=== PATIENT | male | born 1990 | race Caucasian/White ===

== ENCOUNTER 2020-02-10 18:45 | Emergency (ER) | payer SELFPAY ==
[~2020-02-10] VITALS: Ht 172.7 cm; Wt 63.5 kg
--- NOTE | 2020-02-10 18:44 | NUR ---
ED Nurse Note: Pt brought in by ambulance R58 from [facility]. Pt is obtunded, only responsive to deep pain stimulus, nonverbal. Pt vitals at 1844: HR 72, R 21, 96% RA. Per ambulance, pt given Narcan in ambulance. Pt is set up on monitor. aware.
--- NOTE | 2020-02-10 18:47 | NUR ---
ED Nurse Note: Roommate Andres [phone]
--- NOTE | 2020-02-10 18:51 | Emergency Room Report ---
History of Present Illness General Chief Complaint: Overdose Source: EMS (Maximo Guzman DO) Present Illness HPI Patient presents by paramedics for reports of possible overdose Patient himself is unresponsive initially paramedics report that the patient had some response to Narcan There was no reports of vomiting or diarrhea Patient's roommate has now called the emergency room and reports that the patient took a fake xanax (Maximo Guzman DO) Allergies: Coded Allergies: UNABLE TO ASSESS (Unverified , 02/10/20) pt non verbal, not responding. COVID-19 Screening Contact w/high risk pt: No Recent Travel to affected area: No Experienced COVID-19 symptoms?: No (Maximo Guzman DO) Patient History Limited by: medical condition Past Medical History: see triage record Reviewed Nursing Documentation: PMH: Agreed; PSxH: Agreed (Maximo Guzman DO) Nursing Documentation-PMH Past Medical History Deferred: Pt Cognitively Impaired (Maximo Guzman DO) Review of Systems All Other Systems: limited - Other than the ones mentioned in the history of present illness all others are reviewed however they do stay limited due to the patient's mental status (Maximo Guzman DO) Physical Exam Vital Signs Date Time Temp Pulse Resp B/P (MAP) Pulse Ox O2 Delivery O2 Flow Rate FiO2 02/10/20 18:33 98.1 86 14 117/78 (91) 99 Room Air Sp02 EP Interpretation: reviewed, normal General Appearance: Stupor Head: normocephalic, atraumatic Eyes: bilateral eye PERRL - Pinpoint ENT: normal pharynx Neck: supple Respiratory: lungs clear, no respiratory distress, no retraction Cardiovascular #1: regular rate, rhythm Gastrointestinal: non tender, soft Musculoskeletal: other - On current exam patient is unresponsive to physical stimuli Neurologic: other - Respirations are intact patient otherwise not verbal minimal response to physical stimuli Skin: no rash Lymphatic: no adenopathy (Maximo Guzman DO) Medical Decision Making Diagnostic Impression: Primary Impression: Drug overdose Qualified Codes: T50.901A - Poisoning by unspecified drugs, medicaments and biological substances, accidental (unintentional), initial encounter ER Course Multiple differentials and consideration including but not limited to drug overdose, neurological, neurosurgical pulmonary process entertained Patient initially was observed however has slow response to Narcan therefore CT head was obtained which was negative blood work was for appropriate patient's roommate did call and reports that the patient took unknown amount of 'fake xanax' He also left his phone number in the call form in order to be contacted for pickup of the patient once he becomes more oriented Patient at this time remains appropriate for airway is allowed to rest and sober (Maximo Guzman DO) ER Course Patient signed out to me. Patient presents an overdose. He is pretty stuporous secondary to a drug overdose. Drug screen show multiple substances. Patient is otherwise medically stable. He will be watched until clinical sobriety. No evidence of intentional harm. Patient denies suicidal thoughts or homicidal thoughts. No criteria for 5150. This patient is a chronic risk of self injury due to poor impulse control, limited coping skills, and judgment intermittently impaired by intoxication. I believe that the available clinical evidence to suggest that these characteristics derived primarily from personality disorder and are likely very stable over time. Hospitalization would likely attenuate risk of self-harm only during jail period, without lasting risk reduction. Serious self-harm , while possible, would likely be inadvertent, and because of impulsivity, and foreseeable. For these reasons, I do not believe hospitalization would provide meaningful reduction in risk of self-harm. (Norberto Anderson MD) Rhythm Strip Diag. Results EP Interpretation: yes Rate: 65 Rhythm: NSR, no PVC's, no ectopy (Maximo Guzman DO) Chest X-Ray Diagnostic Results Chest X-Ray Diagnostic Results : Chest X-Ray Ordered: Yes # of Views/Limited/Complete: 1 View Indication: Chest Pain EP Interpretation: Yes Interpretation: no consolidation, no effusion, no pneumothorax Impression: No acute disease Electronically Signed by: Maximo Guzman DO (Maximo Guzman DO) CT/MRI/US Diagnostic Results CT/MRI/US Diagnostic Results : Impression CT head: No acute disease (Maximo Guzman DO) Last Vital Signs Date Time Temp Pulse Resp B/P (MAP) Pulse Ox O2 Delivery O2 Flow Rate FiO2 02/10/20 18:33 98.1 86 14 117/78 (91) 99 Room Air Status: improved (Maximo Guzman DO) Status: improved (Norberto Anderson MD) Disposition: HOME, SELF-CARE Condition: Stable Scripts Unable to Obtain Active Prescriptions or Reported Meds Additional Instructions: Abstain from drugs and alcohol. Follow-up with rehab within a week. Return if symptoms worsen. Maximo Guzman DO Feb 10, 2020 18:51 Norberto Anderson MD Feb 10, 2020 22:58
[2020-02-10 18:56] VITALS: BP 115/72
[2020-02-10] MEDS ORDERED: Naloxone 1mg/ml 2ml IM ONE (19:00)
--- NOTE | 2020-02-10 19:12 | Diagnostic Imaging Report ---
EXAM: XR Chest, 1 View CLINICAL HISTORY: CP TECHNIQUE: Frontal view of the chest. COMPARISON: No relevant prior studies available. FINDINGS: Lungs: Unremarkable. No consolidation. Pleural space: Unremarkable. No pneumothorax. Heart: Unremarkable. No cardiomegaly. Mediastinum: Unremarkable. Bones/joints: Unremarkable. IMPRESSION: 1. No acute cardiopulmonary disease. 2. If there is continued concern recommend frontal and lateral chest radiographs.
--- NOTE | 2020-02-10 19:23 | NUR ---
ED Nurse Note: Patient sleeping, unresponsive to deeop pain stimuli and snoring faintly. ERMD aware and requests IVP narcan.
[2020-02-10] MEDS ORDERED: Naloxone 1mg/ml 2ml ONE (19:24)
[2020-02-10] MEDS ORDERED: Naloxone 1mg/ml 2ml IVP ONE (19:30)
[2020-02-10 19:32] VITALS: BP 100/61
--- NOTE | 2020-02-10 19:33 | NUR ---
ED Nurse Note: Patient tolerated IVP narcan, was able to localize to pain with sternal rub. Will inform ERMD and continue to monitor.
[2020-02-10 20:40] LABS: BASOPHILS % (AUTO) 0.8 % (0.0-2.0); EOSINOPHILS % (AUTO) 0.6 % (0.0-3.0); HEMATOCRIT 43.6 % (42.0-52.0); HEMOGLOBIN 14.7 G/DL (14.2-18.0); LYMPHOCYTES % (AUTO) 17.4 % (20.0-45.0); MEAN CORPUSCULAR VOLUME 92 FL (80-99); NEUTROPHILS % (AUTO) 77.2 % (45.0-75.0); PLATELET COUNT 411 K/UL (150-450); RED BLOOD COUNT 4.73 M/UL (4.70-6.10); RED CELL DISTRIBUTION WIDTH 12.2 % (11.6-14.8); WHITE BLOOD COUNT 12.7 K/UL (4.8-10.8)
--- NOTE | 2020-02-10 20:44 | NUR ---
ED Nurse Note: Patient going down for CT.
[2020-02-10 20:52] LABS: ANION GAP 8 mmol/L (5-15); BLOOD UREA NITROGEN 14 mg/dL (7-18); CALCIUM 9.5 MG/DL (8.5-10.1); CARBON DIOXIDE 27 MMOL/L (21-32); CHLORIDE 105 MMOL/L (98-107); CREATININE 0.9 MG/DL (0.55-1.30); POTASSIUM 4.2 MMOL/L (3.5-5.1); SODIUM 140 MMOL/L (136-145)
[2020-02-10 20:57] LABS: ALANINE AMINOTRANSFERASE 25 U/L (12-78); ALBUMIN 4.4 G/DL (3.4-5.0); ALBUMIN/GLOBULIN RATIO 1.3 (1.0-2.7); ALKALINE PHOSPHATASE 66 U/L (46-116); ASPARTATE AMINO TRANSFERASE 11 U/L (15-37); BILIRUBIN,TOTAL 0.2 MG/DL (0.2-1.0)
--- NOTE | 2020-02-10 21:05 | Diagnostic Imaging Report ---
EXAM: CT Head Without Intravenous Contrast CLINICAL HISTORY: AMS TECHNIQUE: Axial computed tomography images of the head/brain without intravenous contrast. CTDI is 53 mGy and DLP is 992 mGy-cm. One or more of the following dose reduction techniques were used: automated exposure control, adjustment of the mA and/or kV according to patient size, use of iterative reconstruction technique. COMPARISON: No relevant prior studies available. FINDINGS: Brain: Unremarkable. No hemorrhage. No significant white matter disease. No edema. Ventricles: Unremarkable. No ventriculomegaly. Bones/joints: Unremarkable. No acute fracture. Soft tissues: Unremarkable. Sinuses: Unremarkable as visualized. No acute sinusitis. Mastoid air cells: Unremarkable as visualized. No mastoid effusion. Other findings: Unremarkable unenhanced CT head. IMPRESSION: 1. No acute intracranial abnormality. 2. Unremarkable unenhanced CT head.
--- NOTE | 2020-02-10 21:58 | NUR ---
ED Nurse Note: All labs have been resulted, ERMD aware. Patient is resting comfortably with no s/s of acute distress. Vital signs are within normal range and documented. Will continue to monitor.
[2020-02-10 22:00] VITALS: BP 97/56
--- NOTE | 2020-02-10 23:36 | NUR ---
ED Nurse Note: Patient is now awake, alert and oriented x 4. Hen is able to remember that he tried xanax smashed with rohypnol. Patient vitals are stable and documented.
[2020-02-10 23:39] VITALS: BP 144/95
[2020-02-11 00:17] VITALS: BP 144/95
--- NOTE | 2020-02-11 00:17 | NUR ---
ED Nurse Note: Patient cleared for discharge by [facility]. Patient provided with a shirt, jacket and shoes for the weather accomodations. Patient will continue to call his friend from the waiting room for grain picker.
== END 2020-02-11 00:17 | disposition home or self-care (01) ==
LOC: EDBD 18:45 → EMR 23:28
DX: T50.901A Poisoning by unspecified drugs, medicaments and biological substances, accidental (unintentional), initial encounter (principal); X58.XXXA Exposure to other specified factors, initial encounter; Y92.9 Unspecified place or not applicable
CPT/HCPCS: 36415; 70450; 71045; 80053; 80307; 85025; 96361; 96372; 96374; 99284; G0480; J2310; J7030